=== PATIENT | female | born 1980 | race Two or more races ===

== ENCOUNTER → 2019-04-06 | Outpatient (CLI) | payer BC ==
--- NOTE | 2019-04-06 14:24 | RADIOLOGY REPORT (SQ) ---
EXAM DESCRIPTION: U/S ABDOMEN COMPLETE W/DOPPLER COMPLETED DATE/TIME: 04/06/2019 11:43 am REASON FOR STUDY: UNSPECIFIED ABDOMINAL PAIN R10.9 UNSPECIFIED ABDOMINAL PAIN COMPARISON: None. TECHNIQUE: Dynamic and static grayscale images acquired of the abdomen and recorded on PACS. Additio nal selected color Doppler and spectral images recorded. Note: Study does not meet criteria for complete doppler/duplex scan LIMITATIONS: None. FINDINGS: PANCREAS: No masses. Visualized pancreatic duct normal caliber. LIVER: No masses. Echotexture normal. LIVER VASCULATURE: Normal directional flow of the main portal vein and hepatic veins. GALLBLADDER: No stones. Normal wall thickness. No pericholecystic fluid. ULTRASOUND-DETECTED OWUSU'S SIGN: Negative. INTRAHEPATIC DUCTS AND COMMON DUCT: CBD and intrahepatic ducts normal caliber. No filling defects. INFERIOR VENA CAVA: Normal flow. AORTA: No aneurysm. RIGHT KIDNEY:Normal size. Normal echogenicity. No solid or suspicious masses. No hydronephrosis. No c alcifications. LEFT KIDNEY: Normal size. Normal echogenicity. No solid or suspicious masses. No hydronephrosis. No calcifications. SPLEEN: Normal size. No solid masses. PERITONEAL AND PLEURAL SPACES: No ascites or effusions. OTHER: No other significant finding. IMPRESSION: NORMAL ABDOMINAL ULTRASOUND. TECHNICAL DOCUMENTATION: JOB ID: [id number] [employer]- All Rights Reserved Reading location - IP/workstation name: [email or web address]
== END ==
LOC: RAD 11:01
PROVIDERS: ATTEND Physician Assistant
DX: R10.9 Unspecified abdominal pain (principal)
CPT/HCPCS: 76700; 93976

== ENCOUNTER 2019-07-25 20:15 | Emergency (ER) | payer BC ==
--- NOTE | 2019-07-25 20:33 | ER Document Report ---
ED GI/ - General Chief Complaint: Abdominal Pain Stated Complaint: ABDOMINAL PAIN Time Seen by Provider: 07/25/19 20:33 Primary Care Provider: FERMIN FLORES PA [NO LOCAL MD] - Follow up as needed Mode of Arrival: Ambulatory Information source: Patient, Relative Notes: HISTORY OF PRESENT ILLNESS: Patient is a 38-year-old female at 6-8 weeks with a past medical history of 1 prior stillbirth and one living child who presents with lower pelvic a bdominal pain that has been ongoing for the past several days but worsened today. Patient reports that her real estate officer told her 2 weeks ago that the fetus "had no heartbeat" and that a follow-up process on last week was unchanged. She currently reports she is attempting to get a secondary opinion after being told that she only had 3 options, all involving completing the miscarriage. Location: Pelvic Onset: Gradual several days ago Provocation: None Quality: Cramping, aching Radiation: None Severity: Moderate Timing: Persistent LMP: Reports being approximately 6 to 8 weeks Associated symptoms: Denies vaginal bleeding or discharge REVIEW OF SYSTEMS: CONSTITUTIONAL : Denies fever or chills, no sweats. Denies recent illness. EENT: Denies eye, ear, throat, or mouth pain or symptoms. Denies nasal or sinus congestion. CARDIOVASCULAR: Denies chest pain. RESPIRATORY: Denies cough, cold, or chest congestion. Denies shortness of breath, difficulty breathing, or wheezing. GASTROINTESTINAL: Denies abdominal pain. Denies nausea, vomiting, or diarrhea. Denies constipation. GENITOURINARY: Positive for pelvic pain and cramping. Denies difficulty urinating, painful urination, burning, frequency, or blood in urine. Denies vaginal bleeding, abnormal or irregular periods. MUSCULOSKELETAL: Denies neck or back pain or joint pain or swelling. SKIN: Denies rash or skin lesions. HEMATOLOGIC : Denies easy bruising or bleeding. LYMPHATIC: Denies swollen, enlarged glands. NEUROLOGICAL: Denies altered mental status or loss of consciousness. Denies headache. Denies weakness or paralysis or loss of use of either side. Denies problems with gait or speech. Denies sensory or motor loss. PSYCHIATRIC: Denies anxiety or stress or depression. All other systems reviewed and negative. PHYSICAL EXAMINATION: GENERAL: Well-appearing, well-nourished and in no acute distress. HEAD: Atraumatic, normocephalic. No scalp deformity, depression, or crepitance. EYES: Pupils are 3 mm and equal/round/reactive to light, extraocular movements intact, sclera anicteric, conjunctiva are normal. ENT: Nares patent bilaterally, oropharynx clear without exudates or palatal petechia. Moist mucous membranes. No tonsil hypertrophy. NECK: Normal range of motion, supple without lymphadenopathy. LUNGS: Breath sounds present, equal, and clear to auscultation bilaterally. No wheezes, rales, or rhonchi. HEART: Regular rate and rhythm without murmurs, rubs, or gallops. 2+ peripheral pulses. Normal capillary refill. ABDOMEN: Soft, mild suprapubic and pelvic tenderness, nondistended. Normoactive bowel sounds. No guarding, no rebound. No masses appreciated. BACK: Normal contour, no midline tenderness. Rectal exam deferred. PELVC: Deferred in lieu of of pelvic ultrasound. EXTREMITIES: Normal range of motion, no pitting or edema. No cyanosis. NEUROLOGICAL: No focal neurological deficits. Moves all extremities spontaneously and on command. PSYCH: Normal mood, normal affect. No suicidal thoughts/ideations. No homicidal thoughts/ideations. No hallucinations. SKIN: Warm, dry, normal turgor, no rashes or lesions noted. ASSESSMENT AND PLAN: This patient is a 38-year-old female at 6-8 weeks who presents with pelvic pain in the setting of a possible miscarriage. 1. Will obtain labs, quantitative beta-hCG, and pelvic ultrasound. 2. Will reassess after work-up is complete. TRAVEL OUTSIDE OF THE [place] IN LAST 30 DAYS: No - HPI Patient complains to provider of: Abdominal pain, Pelvic pain, . No: Vaginal bleeding, Vaginal discharge, Vaginal pain Onset: This morning Timing/Duration: Gradual, Persistent Quality of pain: Achy, Cramping Severity at maximum: Moderate Severity in ED: Mild Pain Level: 2 Context: . denies: Recent trauma Location: Suprapubic, Pelvis Vaginal bleeding (Compared to normal period): None Menstrual period history: LMP: "April" : 3 Para: 1 Abortions: 1 OB ultrasound done: No vitamins taken: Yes Sexual history: Active Associated symptoms: None Exacerbated by: Denies Relieved by: Denies Similar symptoms previously: Yes Recently seen / treated by doctor: Yes - Related Data Allergies/Adverse Reactions: No Known Allergies Allergy (Unverified 07/25/19 20:18) Past Medical History - General Information source: Patient, Relative - Social History Smoking Status: Never Smoker Chew tobacco use (# tins/day): No Frequency of alcohol use: None Drug Abuse: None Lives with: Family Family History: Reviewed & Not Pertinent Patient has suicidal ideation: No Patient has homicidal ideation: No - Past Medical History Cardiac Medical History: Reports: None Pulmonary Medical History: Reports: None EENT Medical History: Reports: None Neurological Medical History: Reports: None Endocrine Medical History: Reports: None Renal/ Medical History: Reports: None Malignancy Medical History: Reports: None GI Medical History: Reports: None Musculoskeletal Medical History: Reports None Skin Medical History: Reports None Psychiatric Medical History: Reports: None Traumatic Medical History: Reports: None Infectious Medical History: Reports: None Surgical Hx: Negative Past Surgical History: Reports: None - Immunizations Immunizations up to date: Yes Hx Diphtheria, Pertussis, Tetanus Vaccination: Yes Review of Systems - Review of Systems Constitutional: No symptoms reported EENT: No symptoms reported Cardiovascular: No symptoms reported Respiratory: No symptoms reported Gastrointestinal: No symptoms reported Genitourinary: No symptoms reported Female Genitourinary: See HPI, Musculoskeletal: No symptoms reported Skin: No symptoms reported Hematologic/Lymphatic: No symptoms reported Neurological/Psychological: No symptoms reported -: Yes All other systems reviewed and negative Physical Exam - Vital signs Vitals: Temp Pulse Resp BP Pulse Ox 97.8 F 79 16 122/74 98 07/25/19 20:20 07/25/19 20:20 07/25/19 20:20 07/25/19 20:20 07/25/19 20:20 Interpretation: Normal - General General appearance: Appears well, Alert - HEENT Head: Normocephalic, Atraumatic Eyes: Normal Pupils: PERRL - Respiratory Respiratory status: No respiratory distress Chest status: Nontender Breath sounds: Normal Chest palpation: Normal - Cardiovascular Rhythm: Regular Heart sounds: Normal auscultation Murmur: No - Abdominal Inspection: Normal Distension: No distension Bowel sounds: Normal Tenderness: Nontender Organomegaly: No organomegaly - Back Back: Normal, Nontender - Extremities General upper extremity: Normal inspection, Nontender, Normal color, Normal ROM, Normal temperature General lower extremity: Normal inspection, Nontender, Normal color, Normal ROM, Normal temperature, Normal weight bearing. No: Naldo's sign - Neurological Neuro grossly intact: Yes Cognition: Normal Orientation: AAOx4 Sonal Coma Scale Eye Opening: Spontaneous Sonal Coma Scale Verbal: Oriented Sonal Coma Scale Motor: Obeys Commands [place] Coma Scale Total: 15 Speech: Normal Motor strength normal: LUE, RUE, LLE, RLE Sensory: Normal - Psychological Associated symptoms: Normal affect, Normal mood - Skin Skin Temperature: Warm Skin Moisture: Dry Skin Color: Normal Course - Re-evaluation Re-evalutation: 07/26/19 00:55 Ultrasound shows no evidence of a viable intrauterine , most likely consistent with intrauterine demise. Patient already has planned follow-up with OB this week. Will discharge the patient home with strict return precautions and follow-up with [facility]. All results were explained to and discussed with the patient, and all questions addressed and answered for the patient. The patient and her family voice both understanding and agreeing with the plan. - Vital Signs Vital signs: Temp Pulse Resp BP Pulse Ox 98.2 F 70 16 109/57 L 98 07/26/19 00:47 07/26/19 00:47 07/26/19 00:47 07/26/19 00:47 07/26/19 00:47 - Laboratory Result Diagrams: 07/25/19 20:43 07/25/19 20:43 Laboratory results interpreted by me: 07/25/19 07/25/19 07/25/19 20:43 20:43 20:43 Hgb 11.0 L Hct 34.1 L MCV 66 L MCH 21.2 L RDW 17.5 H Sodium 136.5 L Glucose 128 H Beta HCG, Quant 05867.00 H Ur Leukocyte Esterase TRACE H - Diagnostic Test Radiology reviewed: Image reviewed, Reports reviewed Discharge - Discharge Clinical Impression: Prior with demise and current in first trimester Condition: Good Disposition: HOME, SELF-CARE Instructions: Abdominal Pain ([facility]), Miscarriage ([facility]) Additional Instructions: You have been evaluated in the Emergency Department for abdominal pain. While here, you had an ultrasound that is consistent with a likely miscarriage and it is now safe to be discharged home. Please follow-up with your [facility] as instructed as soon as possible. Return to the Emergency Department if you experience worsening pain, vaginal bleeding, or any other concerning symptoms. Prescriptions: Tramadol HCl [Ultram 50 mg Tablet] 50 mg PO Q6HP PRN #28 tablet PRN Reason: Forms: Parent Work Note Referrals: FERMIN FLORES PA [NO LOCAL MD] - Follow up as needed Print Language: Kyrgyz
--- NOTE | 2019-07-25 20:33 | ER Document Report ---
ED Medical Screen (RME) - General Chief Complaint: Abdominal Pain Stated Complaint: ABDOMINAL PAIN Time Seen by Provider: 07/25/19 20:20 Primary Care Provider: FERMIN FLORES PA [Primary Care Provider] - Follow up as needed Notes: Patient is a 38-year-old female who presents to emergency department with a chief complaint of lower abdominal pain that started 2 hours ago. Patient states last week she was seen at [facility] and was told that her baby did not have a heartbeat. She states she was about 6 weeks . Patient reports that she was given 3 options to include miscarrying at home, using Cytotec, or a D&C. Patient states she went home to make a decision as she wanted to get another opinion from a PAINT PROCESS ENGINEER in [place]. Patient states that she did decide she would want to have a D&C and was going to call her OB tomorrow. Patient states she reports chills. Patient denies nausea vomiting or diarrhea. Patient reports earlier she did notice some vaginal bleeding when she wiped after using the restroom and it was dark in color. Patient denies blood clots or large amounts of vaginal bleeding. Patient reports she feels like she may have a fever. TRAVEL OUTSIDE OF THE [place] IN LAST 30 DAYS: No - Related Data Allergies/Adverse Reactions: No Known Allergies Allergy (Unverified 07/25/19 20:18) Physical Exam - Vital signs Vitals: Temp Pulse Resp BP Pulse Ox 97.8 F 79 16 122/74 98 07/25/19 20:20 07/25/19 20:20 07/25/19 20:20 07/25/19 20:20 07/25/19 20:20 - Abdominal Inspection: Normal Distension: No distension Bowel sounds: Normal Organomegaly: No organomegaly Course - Re-evaluation Re-evalutation: 07/25/19 20:33 I have greeted and performed a rapid initial assessment of this patient. A comprehensive ED assessment and evaluation of the patient, analysis of test results and completion of the medical decision making process will be conducted by additional ED providers. - Vital Signs Vital signs: Temp Pulse Resp BP Pulse Ox 97.8 F 79 16 122/74 98 07/25/19 20:20 07/25/19 20:20 07/25/19 20:20 07/25/19 20:20 07/25/19 20:20 Doctor's Discharge - Discharge Referrals: FERMIN FLORES PA [Primary Care Provider] - Follow up as needed
[2019-07-25 21:03] LABS: APPEARANCE,URINE CLEAR; BILIRUBIN,URINE NEGATIVE (NEGATIVE); COLOR,URINE YELLOW; GLUCOSE, URINE NEGATIVE (NEGATIVE); KETONES,URINE NEGATIVE (NEGATIVE); LEUKOCYTE ESTERASE,URINE TRACE (NEGATIVE); NITRITE,URINE NEGATIVE (NEGATIVE); PROTEIN,URINE NEGATIVE (NEGATIVE); URINE SPECIFIC GRAVITY 1.013; UROBILINOGEN,URINE NEGATIVE mg/dL (<2.0)
[2019-07-25 21:04] LABS: ABSOLUTE EOSINOPHILS # (AUTO) 0.1 10^3/uL (0.0-0.6); ABSOLUTE LYMPHOCYTES (AUTO) 1.3 10^3/uL (0.5-4.7); ABSOLUTE MONOCYTES (AUTO) 0.8 10^3/uL (0.1-1.4); ABSOLUTE NEUT (AUTO) 4.6 10^3/uL (1.7-8.2); BASOPHILS % (AUTO) 0.2 % (0-2); EOSINOPHILS % (AUTO) 1.4 % (0-6); HEMATOCRIT 34.1 % (36.0-47.0); LYMPHOCYTES % (AUTO) 19.5 % (13-45); MEAN CORPUSCULAR HEMOGLOBIN 21.2 pg (27.0-33.4); MEAN CORPUSCULAR HGB CONC 32.4 g/dL (32.0-36.0); MEAN CORPUSCULAR VOLUME 66 fl (80-97); MONOCYTES % (AUTO) 11.7 % (3-13); PLATELET COUNT 194 10^3/uL (150-450); RED CELL DISTRIBUTION WIDTH 17.5 % (11.5-14.0); SEGMENTED NEUTROPHILS % (AUTO) 67.2 % (42-78); TOTAL CELLS COUNTED % (AUTO) 100 %; WHITE BLOOD COUNT 6.9 10^3/uL (4.0-10.5)
[2019-07-25 21:16] LABS: ALBUMIN 3.9 g/dL (3.5-5.0); ALKALINE PHOSPHATASE 46 U/L (38-126); ANION GAP 8 (5-19); ASPARTATE AMINO TRANSFERASE 20 U/L (14-36); BILIRUBIN,DIRECT 0.3 mg/dL (0.0-0.4); BILIRUBIN,TOTAL 0.3 mg/dL (0.2-1.3); BLOOD UREA NITROGEN 9 mg/dL (7-20); CALCIUM 9.3 mg/dL (8.4-10.2); CARBON DIOXIDE 26 mmol/L (22-30); CHLORIDE 103 mmol/L (98-107); GLUCOSE 128 mg/dL (75-110); POTASSIUM 3.9 mmol/L (3.6-5.0)
--- NOTE | 2019-07-25 23:18 | RADIOLOGY REPORT (SQ) ---
Ultrasound OB transvaginal on 07/25/2019 at 10:36 PM Clinical indication: Lower abdominal pain, history of demise last week COMPARISON: None FINDINGS: Multiple sonographic images are obtained throughout the pelvis by transvaginal approach, both transverse and sagittal images are obtained. Uterus is retroverted/retroflexed. Uterus measures approximately 9.3 x 6.3 x 7.4 cm. Right ovary measures approximately 2.2 x 1.3 x 1.0 cm. Flow is demonstrated in the right ovary. Left ovary measures approximately 1.9 x 3.4 x 2.0 cm. There is a likely collapsing corpus luteal cyst in the left ovary incidentally noted only measuring approximately 1.3 x 0.5 x 1.0 cm and should be considered benign with no follow-up recommended. Flow is demonstrated in the left ovary. There is a large irregular gestational sac in the uterus with no yolk sac or pole consistent with demise. Recommend appropriate OB follow-up. There is heterogeneous appearance of the uterine myometrium suggesting multiple small fibroids. IMPRESSION: Large irregular gestational sac with no yolk sac or pole consistent with demise and retained products of conception. Recommend appropriate OB follow-up.
[2019-07-26 00:48] VITALS: BP 109/57
== END 2019-07-26 01:16 | disposition home or self-care (01) ==
LOC: ER 20:15
DX: O26.891 Other specified pregnancy related conditions, first trimester (principal); R10.9 Unspecified abdominal pain; R10.2 Pelvic and perineal pain; Z3A.01 Less than 8 weeks gestation of pregnancy
CPT/HCPCS: 36415; 76817; 80053; 81001; 84702; 85025; 86900; 86901; 93976

== ENCOUNTER 2019-07-27 09:24 | Day surgery (SDC) | payer BC ==
[2019-07-27] MEDS ORDERED: MIDAZOLAM 2 MG/2 ML INJ ONE (10:33)
[2019-07-27] MEDS ORDERED: PROPOFOL INJ 200 MG/20 ML VIAL IV ONE (10:33)
[2019-07-27] MEDS ORDERED: FENTANYL CITRATE INJ/PF 100 MCG/2 ML AMPUL ONE (10:33)
[2019-07-27] MEDS ORDERED: KETOROLAC TROMETHAMINE 60 MG/2 ML SDV ONE (12:15)
[2019-07-27] MEDS ORDERED: DEXAMETHASONE SOD PHOSPHATE INJ 4 MG/1 ML VIAL ONE (12:16)
[2019-07-27] MEDS ORDERED: ONDANSETRON HCL INJ/PF 4 MG/2 ML SDV ONE (12:16)
[2019-07-27] MEDS ORDERED: FENTANYL CITRATE INJ/PF 100 MCG/2 ML AMPUL IV PRN ×3 (12:56)
[2019-07-27] MEDS ORDERED: MORPHINE SULFATE 10 MG/ML INJ IV PRN (12:56)
[2019-07-27] MEDS ORDERED: MEPERIDINE HCL/PF INJ 25 MG/1 ML DISP.SYRIN IV PRN (12:56)
[2019-07-27] MEDS ORDERED: DIPHENHYDRAMINE HCL 50 MG/ML VIAL IV PRN (12:56)
[2019-07-27] MEDS ORDERED: OXYCODONE-ACETAMINOPHEN 5-325 MG TABLET PO PRN ×4 (12:56→13:03)
[2019-07-27] MEDS ORDERED: RINGERS SOLUTION,LACTATED 1,000 ML IV PRN (13:03)
[2019-07-27] MEDS ORDERED: IBUPROFEN 800 MG TABLET PO PRN (13:03)
[2019-07-27] MEDS ORDERED: KETOROLAC TROMETHAMINE INJ/PF 30 MG/1 ML SDV IV PRN (13:03)
--- NOTE | 2019-07-27 13:08 | Operative Report ---
Operative Report DATE OF SURGERY: 07/27/19 PREOPERATIVE DIAGNOSIS: Missed POSTOPERATIVE DIAGNOSIS: Same OPERATION: Suction D&C SURGEON: CHAD DOMINGO ANESTHESIA: LMAC TISSUE REMOVED OR ALTERED: Uterine contents COMPLICATIONS: None ESTIMATED BLOOD LOSS: 50 cc INTRAOPERATIVE FINDINGS: Uterus sounded to 8 cm before and after the case PROCEDURE: Patient was taken to the OR and placed in supine position. Anesthesia was induced. She is placed in the dorsolithotomy position using Mauricio stirrups. Her perineum and vagina were prepared and draped in sterile fashion. Her bladder was drained with a red rubber catheter. A weighted speculum was placed in the anterior lip the cervix was grasped with a tenaculum. Uterine sound was retroverted and 8 cm. The cervix was dilated. This allowed a size 8 curette to be placed. The uterine contents were evacuated. There was return of tissue and fluid. A gentle sharp curettage revealed no retained products at the end of the case. Repeat sound was 8 cm. All instruments were removed. There was some bleeding from the tenaculum site and a [id number] suture of 3-0 chromic was placed to stop the bleeding from the tenaculum site. Patient was placed back in supine position taken to recovery room in stable condition.
--- NOTE | 2019-07-27 13:10 | Discharge Summary ---
Discharge Summary (SDC) - Discharge Final Diagnosis: Missed Date of Surgery: 07/27/19 Discharge Date: 07/27/19 Condition: Good Referrals: LUPIS HAGEN MD [Primary Care Provider] - Discharge Diet: Regular Discharge Activity: Activity As Tolerated, Pelvic Rest Report the Following to Your Physician Immediately: Shortness of Breath, Fever over 101 Degrees, Unusual Bleeding
[2019-07-27 14:56] VITALS: BP 103/48
== END 2019-07-27 14:55 | disposition home or self-care (01) ==
LOC: OROUT 09:24
PROVIDERS: ATTEND Obstetrics & Gynecology
DX: O02.1 Missed abortion (principal)
CPT/HCPCS: 88305 ×2; 01965; 59820; J2250; J1100; J1885; J3010; J2405; J2704; 1965

== ENCOUNTER 2019-07-31 15:07 | Emergency (ER) | payer BC ==
--- NOTE | 2019-07-31 16:22 | ER Document Report ---
ED Medical Screen (RME) - General Chief Complaint: Vaginal Pain Stated Complaint: ABDOMINAL PAIN Time Seen by Provider: 07/31/19 16:17 Primary Care Provider: LUPIS HAGEN MD [Primary Care Provider] - Follow up as needed Mode of Arrival: Ambulatory Information source: Patient Notes: 38-year-old female the ED for complaint of pelvic pain x3 hours she states she has some slight pain and burning with urination. She did have a D&C last Thursday. She is alert oriented respirations regular and unlabored speaking in full sentences walks with even steady gait. I have greeted and performed a rapid initial assessment of this patient. A comprehensive ED assessment and evaluation of the patient, analysis of test results and completion of medical decision making process will be conducted by an additional ED providers. TRAVEL OUTSIDE OF THE [place] IN LAST 30 DAYS: No - Related Data Allergies/Adverse Reactions: No Known Allergies Allergy (Verified 07/31/19 15:12) Past Medical History - Social History Chew tobacco use (# tins/day): No Frequency of alcohol use: None Drug Abuse: None - Past Medical History Cardiac Medical History: Denies: Hx Coronary Artery Disease, Hx Heart Attack, Hx Hypertension Pulmonary Medical History: Denies: Hx Asthma, Hx Bronchitis, Hx COPD, Hx Pneumonia Neurological Medical History: Denies: Hx Cerebrovascular Accident, Hx Seizures Musculoskeltal Medical History: Denies Hx Arthritis - Immunizations Immunizations up to date: Yes Hx Diphtheria, Pertussis, Tetanus Vaccination: No Physical Exam - Vital signs Vitals: Temp Pulse Resp BP Pulse Ox 97.9 F 80 18 108/58 L 96 07/31/19 15:15 07/31/19 15:15 07/31/19 15:15 07/31/19 15:15 07/31/19 15:15 Course - Vital Signs Vital signs: Temp Pulse Resp BP Pulse Ox 97.9 F 80 18 108/58 L 96 07/31/19 15:15 07/31/19 15:15 07/31/19 15:15 07/31/19 15:15 07/31/19 15:15 Doctor's Discharge - Discharge Referrals: LUPIS HAGEN MD [Primary Care Provider] - Follow up as needed
[2019-07-31 16:37] LABS: ABSOLUTE EOSINOPHILS # (AUTO) 0.2 10^3/uL (0.0-0.6); ABSOLUTE LYMPHOCYTES (AUTO) 1.1 10^3/uL (0.5-4.7); ABSOLUTE MONOCYTES (AUTO) 0.8 10^3/uL (0.1-1.4); BASOPHILS % (AUTO) 0.7 % (0-2); EOSINOPHILS % (AUTO) 2.3 % (0-6); HEMATOCRIT 37.5 % (36.0-47.0); HEMOGLOBIN 12.1 g/dL (12.0-15.5); LYMPHOCYTES % (AUTO) 15.4 % (13-45); MEAN CORPUSCULAR HEMOGLOBIN 21.2 pg (27.0-33.4); MEAN CORPUSCULAR HGB CONC 32.2 g/dL (32.0-36.0); MEAN CORPUSCULAR VOLUME 66 fl (80-97); MONOCYTES % (AUTO) 11.5 % (3-13); PLATELET COUNT 219 10^3/uL (150-450); RED CELL DISTRIBUTION WIDTH 17.4 % (11.5-14.0); SEGMENTED NEUTROPHILS % (AUTO) 70.1 % (42-78); TOTAL CELLS COUNTED % (AUTO) 100 %; WHITE BLOOD COUNT 7.1 10^3/uL (4.0-10.5)
[2019-07-31 16:45] LABS: APPEARANCE,URINE CLEAR; BILIRUBIN,URINE NEGATIVE (NEGATIVE); COLOR,URINE YELLOW; GLUCOSE, URINE NEGATIVE (NEGATIVE); KETONES,URINE NEGATIVE (NEGATIVE); LEUKOCYTE ESTERASE,URINE TRACE (NEGATIVE); NITRITE,URINE NEGATIVE (NEGATIVE); PROTEIN,URINE NEGATIVE (NEGATIVE); URINE SPECIFIC GRAVITY 1.011; UROBILINOGEN,URINE NEGATIVE mg/dL (<2.0)
--- NOTE | 2019-07-31 19:18 | ER Document Report ---
HPI - HPI Patient complains to provider of: vaginal bleeding, pelvic pain Time Seen by Provider: 07/31/19 16:17 Pain Level: 3 Context: 38 Yr old female patient, with the listed pmh, here for abdominal pain x days. No abdominal surgeries. No history of ovarian cysts, fibroids, endometriosis, or renal stones. Normal bowel movements. No UTI symptoms. No URI symptoms. No recent antibiotics or steroids. No history of diabetes or asthma. No vaginal discharge/complaints/lesions or concerns for STDs and does not want a pelvic exam. No ripping or tearing sensation. Hasn't taken anything for her symptoms. No excessive NSAID use, Tylenol use, or EtOH. No prior history of gallbladder disease, pancreatitis, ulcers, GI bleed, GERD, IBS, Crohn's, or UC. no change in color or caliber or stool. no blood thinners. no fall or trauma. no other associated sx. - ROS Systems Reviewed and Negative: Yes All other systems reviewed and negative - To include 10 systems, unless mentioned in the hpi. - REPRODUCTIVE Reproductive: DENIES: : Past Medical History - General Information source: Patient - Social History Smoking Status: Never Smoker Chew tobacco use (# tins/day): No Frequency of alcohol use: None Drug Abuse: None Family History: Reviewed & Not Pertinent Patient has suicidal ideation: No Patient has homicidal ideation: No - Past Medical History Cardiac Medical History: Denies: Hx Coronary Artery Disease, Hx Heart Attack, Hx Hypertension Pulmonary Medical History: Denies: Hx Asthma, Hx Bronchitis, Hx COPD, Hx Pneumonia Neurological Medical History: Denies: Hx Cerebrovascular Accident, Hx Seizures Musculoskeletal Medical History: Denies Hx Arthritis - Immunizations Immunizations up to date: Yes Hx Diphtheria, Pertussis, Tetanus Vaccination: No Vertical Provider Document - CONSTITUTIONAL Agree With Documented VS: Yes Exam Limitations: No Limitations General Appearance: No Apparent Distress Notes: >>>> PHYSICAL_EXAM: GENERAL_APPEARANCE: well_nourished, alert, cooperative, no_acute_distress, no_obvious_discomfort. Pleasant, female, smiling, speaking in full sentences, in no sign of pain or resp distress, easily sitting up VITALS: reviewed, see vital signs table. HEAD: normocephalic, atraumatic. no ramos signs. no raccoon eyes. EYES: PERRL, EOMI, (-)scleral icterus. NOSE: no_nasal_discharge. MOUTH: (-)decreased moisture. THROAT: no_tonsilar_inflammation/hypertrophy/exudate NECK: supple, no_neck_tenderness, full rom. full strength. no meningeal signs. no sign of central cord syndrome BACK: no midline_back_tenderness. no step offs or deformities CHEST_WALL: no_chest_tenderness. LUNGS: no_wheezing, (-)accessory muscle use, good air exchange bilateral. HEART: normal_rate, normal_rhythm, ABDOMEN: normal_BS, soft, abdomen-diffuse, non-tender, (-)guarding, (- )rebound, no distension or peritoneal signs. neg murphys. neg mcburneys. no cva tenderness. neg heel strike. neg obturator. neg psoas. neg rovsign. GENITALS: no_ulcers_or_lesions on the genitals, no_lacerations on the genitals, PELVIC: (-)tender uterus, left_and_right adnexa non-tender, (-)CMT, (-)active bleeding, (-)discharge, no_tenderness no cervcicitis, normal os, pt consented to exam. exam without incident. 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 RECTAL: deferred EXTREMITIES: strength 5/5 in all_extremities, good pulses in all_extremities, no_edema, no_swelling\tenderness. full rom. normal gait. good hand admissions assistant. brisk cap refill. SKIN: warm, dry, good_color, no_rash. no grossly visible overlying skin changes to suggest trauma NEURO: motor_intact, sensory_intact. cranial nerves 2-12 intact, cerebellar fxn intact MENTAL_STATUS: normal_affect, speech_clear, oriented_X_3, responds_appropriately to questions. - INFECTION CONTROL TRAVEL OUTSIDE OF THE [place] IN LAST 30 DAYS: No Course - Re-evaluation Re-evalutation: 07/31/19 20:23 Pt here for . advised to f/u with pcp in 1-2 days. return for any worsening s ymptoms. vss. well appearing. satting well on ra. neurononfocal. pt understands and agrees to plan. On reexam, pt improved with tx listed. remained stable. nontoxic. well appearing. pain controlled. tolerating po. requesting to go home. case discussed with ER Attending, Dr. Bellamy, who directed and agrees with plan of care and advised no further workup indicated at this time and pt is stable fo r dc home with close f/u with pcp/specialist. Documentation achieved through voice recording which may lead to some occasional accidental typographical errors. Extensive efforts have been made to proof read documentation to make sure these are the least as possible. Category Date Time Status CBC WITH DIFF [HEME] Stat Lab 07/31/19 16:00 Completed COMPREHENSIVE METABOLIC PANEL [CHEM] Stat Lab 07/31/19 16:00 Completed HCG QUANTITATIVE [CHEM] Stat Lab 07/31/19 16:00 Completed HCG-QUAL, SERUM [CHEM] Stat Lab 07/31/19 16:00 Completed URINALYSIS [URIN] Stat Lab 07/31/19 16:00 Completed URINE CULTURE [MC] Stat Lab 07/31/19 16:00 Received - Vital Signs Vital signs: Temp Pulse Resp BP Pulse Ox 97.9 F 80 18 108/58 L 96 07/31/19 15:15 07/31/19 15:15 07/31/19 15:15 07/31/19 15:15 07/31/19 15:15 07/31/19 20:25 Temp Pulse Resp BP Pulse Ox 07/31/19 15:15 97.9 F 80 18 108/58 L 96 - Laboratory Result Diagrams: 07/31/19 16:00 07/31/19 16:00 Laboratory results interpreted by me: 07/31/19 07/31/19 07/31/19 16:00 16:00 16:00 RBC 5.70 H MCV 66 L MCH 21.2 L RDW 17.4 H Serum HCG, Qual POSITIVE H Urine Blood LARGE H Ur Leukocyte Esterase TRACE H 07/31/19 20:24 Labs- Entire Visit 07/31/19 07/31/19 07/31/19 16:00 16:00 16:00 WBC 7.1 RBC 5.70 H Hgb 12.1 Hct 37.5 MCV 66 L MCH 21.2 L MCHC 32.2 RDW 17.4 H Plt Count 219 Lymph % (Auto) 15.4 [place] % (Auto) 11.5 Eos % (Auto) 2.3 Baso % (Auto) 0.7 Absolute Neuts (auto) 5.0 Absolute Lymphs (auto) 1.1 Absolute Monos (auto) 0.8 Absolute Eos (auto) 0.2 Absolute Basos (auto) 0.0 Seg Neutrophils % 70.1 Sodium Potassium Chloride Carbon Dioxide Anion Gap BUN Creatinine Est GFR ( Amer) Est GFR (MDRD) Non-Af Glucose Calcium Total Bilirubin Direct Bilirubin Neonat Total Bilirubin Neonat Direct Bilirubin Neonat Indirect Bili AST ALT Alkaline Phosphatase Total Protein Albumin Serum HCG, Qual POSITIVE H Beta HCG, Quant Total Beta HCG Urine Color YELLOW Urine Appearance CLEAR Urine pH 6.0 Ur Specific [place] 1.011 Urine Protein NEGATIVE Urine Glucose (UA) NEGATIVE Urine Ketones NEGATIVE Urine Blood LARGE H Urine Nitrite NEGATIVE Urine Bilirubin NEGATIVE Urine Urobilinogen NEGATIVE Ur Leukocyte Esterase TRACE H Urine WBC (Auto) 5 Urine RBC (Auto) 4 Squamous Epi Cells Auto 1 Urine Mucus (Auto) RARE Urine Ascorbic Acid NEGATIVE 07/31/19 07/31/19 16:00 16:00 WBC RBC Hgb Hct MCV MCH MCHC RDW Plt Count Lymph % (Auto) [place] % (Auto) Eos % (Auto) Baso % (Auto) Absolute Neuts (auto) Absolute Lymphs (auto) Absolute Monos (auto) Absolute Eos (auto) Absolute Basos (auto) Seg Neutrophils % Sodium 135.8 L Potassium 4.7 Chloride 100 Carbon Dioxide 30 Anion Gap 6 BUN 14 Creatinine 0.74 Est GFR ( Amer) > 60 Est GFR (MDRD) Non-Af > 60 Glucose 122 H Calcium 9.2 Total Bilirubin 0.2 Direct Bilirubin 0.1 Neonat Total Bilirubin Not Reportable Neonat Direct Bilirubin Not Reportable Neonat Indirect Bili Not Reportable AST 30 ALT 22 Alkaline Phosphatase 52 Total Protein 7.6 Albumin 4.1 Serum HCG, Qual Beta HCG, Quant 679.19 H Total Beta HCG POSITIVE Urine Color Urine Appearance Urine pH Ur Specific [place] Urine Protein Urine Glucose (UA) Urine Ketones Urine Blood Urine Nitrite Urine Bilirubin Urine Urobilinogen Ur Leukocyte Esterase Urine WBC (Auto) Urine RBC (Auto) Squamous Epi Cells Auto Urine Mucus (Auto) Urine Ascorbic Acid Discharge - Discharge Clinical Impression: Pelvic pain, Vaginal bleeding, Post-op pain Post-op bleeding Qualifiers: Surgical complication system/body Area: genitourinary Procedure type: genitourinary Qualified Code(s): N99.820 - Postprocedural hemorrhage of a genitourinary system organ or structure following a genitourinary system procedure Condition: Good Disposition: HOME, SELF-CARE Instructions: Post Dilation and Curettage ([facility]) Additional Instructions: Follow-up with OBGYN in 1 to 2 days. Return for any worsening symptoms. tylenol or motrin as needed for any pain. take the medication as prescribed. Call for an appointment tomorrow. Pelvic rest. No heavy lifting. Continue postop instructions per your surgeon. Referrals: CHAD DOMINGO MD [ACTIVE STAFF] - Follow up tomorrow LUPIS HAGEN MD [Primary Care Provider] - Follow up tomorrow
[2019-07-31 19:38] LABS: ALBUMIN 4.1 g/dL (3.5-5.0); ALKALINE PHOSPHATASE 52 U/L (38-126); ANION GAP 6 (5-19); ASPARTATE AMINO TRANSFERASE 30 U/L (14-36); BILIRUBIN,DIRECT 0.1 mg/dL (0.0-0.4); BILIRUBIN,TOTAL 0.2 mg/dL (0.2-1.3); BLOOD UREA NITROGEN 14 mg/dL (7-20); CALCIUM 9.2 mg/dL (8.4-10.2); CARBON DIOXIDE 30 mmol/L (22-30); CHLORIDE 100 mmol/L (98-107); GLUCOSE 122 mg/dL (75-110); POTASSIUM 4.7 mmol/L (3.6-5.0); TOTAL PROTEIN 7.6 g/dL (6.3-8.2)
[2019-07-31 20:39] VITALS: BP 112/58
== END 2019-07-31 20:40 | disposition home or self-care (01) ==
LOC: ER 15:07
DX: N99.820 Postprocedural hemorrhage of a genitourinary system organ or structure following a genitourinary system procedure (principal); G89.18 Other acute postprocedural pain; N93.9 Abnormal uterine and vaginal bleeding, unspecified; R10.2 Pelvic and perineal pain; Z98.890 Other specified postprocedural states
CPT/HCPCS: 36415; 80053; 81001; 84702; 84703; 85025; 87086; 99284

== ENCOUNTER → 2019-09-08 | Outpatient (CLI) | payer BC, MEDICAID ==
--- NOTE | 2019-09-08 08:31 | WOMENS IMAGING REPORT ---
EXAM DESCRIPTION: TRANSVAGINAL ULTRASOUND COMPLETED DATE/TIME: 09/08/2019 7:58 am REASON FOR STUDY: RLQ ABDOMINAL PAIN;R10.31 PELVIC PAIN;R10.2 R10.2 PELVIC AND PERINEAL PAIN R10.31 RIGHT LOWER QUADRANT PAIN COMPARISON: None. TECHNIQUE: Dynamic and static grayscale images acquired of the pelvis via transvaginal approach and recorded on PACS. Additional selected color Doppler and spectral images recorded. LIMITATIONS: None. FINDINGS: UTERUS: The uterus is retroverted. Contour normal. No mass. ENDOMETRIAL STRIPE: No focal or generalized thickening. No masses. CERVIX: No nabothian cysts. RIGHT OVARY AND DOPPLER: Normal size. No worrisome masses. Normal arterial vascular flow without evid ence for torsion. LEFT OVARY AND DOPPLER: Normal size. A complex 2.2 x 1.8 x 1.6 cm cyst. Normal arterial vascular paula w without evidence for torsion. FREE FLUID: Small amount of free fluid in the posterior cul-de-sac. OTHER: No other significant finding. MEASUREMENTS: UTERUS: 9.2 x 4.2 x 5.4 cm ENDOMETRIAL STRIPE: 9 mm RIGHT OVARY: 2.7 x 2.5 x 2.1 cm LEFT OVARY: 3.6 x 2.1 x 2.5 cm IMPRESSION: 1. A complex left ovarian cyst. A follow-up examination in 6 to 12 weeks suggested. 2. The uterus is retroverted. COMMENT: Followup of asymptomatic indeterminate ovarian cysts detected by ultrasound in PREMENOPAUS [place] patients Cyst with findings suggestive of, but not classic for, hemorrhagic cyst, endometrioma or dermoid: *6-12 week followup US; if not a resolving hemorrhagic cyst, continued US or MRI followup; if endomet rioma or dermoid still not confirmed, consider surgical consultation Single thin septation or focal wall calcification: *Same as for benign cyst, based on size Multiple septations: *Consider surgical consultation Nodule in a cyst: *No blood flow in nodule: MRI or surgical consultation *Blood flow in nodule: surgical consultation Note: If cyst is clinically symptomatic or otherwise concerning, other followup may be warranted. Based on recommendations of the Society for Radiologists in Ultrasound Consensus Conference Statement 2010 on management of asymptomatic ovarian and other adnexal cysts imaged at ultrasound. TECHNICAL DOCUMENTATION: JOB ID: [id number] [employer]- All Rights Reserved Rev Reading location - IP/workstation name: [email or web address]
== END ==
LOC: WI 07:35
PROVIDERS: ATTEND Physician Assistant
DX: R10.31 Right lower quadrant pain (principal); R10.2 Pelvic and perineal pain
CPT/HCPCS: 76830

== ENCOUNTER → 2019-11-03 | Outpatient (CLI) | payer BC, MEDICAID ==
--- NOTE | 2019-11-03 13:45 | RADIOLOGY REPORT (SQ) ---
EXAM DESCRIPTION: U/S NON-OB PELVIS TV W/O DOP COMPLETED DATE/TIME: 11/03/2019 12:13 pm REASON FOR STUDY: N83.202 UNSPECIFIED OVARIAN CYST, LEFT SIDE N83.202 UNSPECIFIED OVARIAN CYST, LEF T SIDE COMPARISON: 09/08/2019 TECHNIQUE: Dynamic and static grayscale images acquired of the pelvis via transvaginal approach and recorded on PACS. Additional selected color Doppler and spectral images recorded. LIMITATIONS: None. FINDINGS: UTERUS: Contour normal. No mass. ENDOMETRIAL STRIPE: No focal or generalized thickening. No masses. Small amount of free fluid is not ed in the endometrium. CERVIX: No nabothian cysts. RIGHT OVARY AND DOPPLER: Normal size. No worrisome masses. Normal arterial vascular flow without evid ence for torsion. There is a small right ovarian cyst this measures just over [address] diame ter. . LEFT OVARY AND DOPPLER: Normal size. No worrisome masses. Normal arterial vascular flow without evide nce for torsion. There is a degenerating cyst on the left measured 1.4 x 1.7 x 0.9 cm. This is impr balta from prior exam. FREE FLUID: There is a small amount of free fluid in the anterior cul de sac. OTHER: No other significant finding. MEASUREMENTS: UTERUS: 7.1 x 4.8 x 4.2 cm. ENDOMETRIAL STRIPE: 9.8 mm. RIGHT OVARY: 3.0 x 1.2 x 1.4 cm. LEFT OVARY: 2.4 x 2.6 x 1.6 cm. IMPRESSION: Degenerating left ovarian cyst measured 1.4 x 1.7 x 0.9 cm. Previously this measured 2. 2 x 1.8 x 1.6 cm. There is a small amount of free fluid in the anterior cul de sac. TECHNICAL DOCUMENTATION: JOB ID: [id number] [employer]- All Rights Reserved Rev-04/09 Reading location - IP/workstation name: [email or web address]
== END ==
LOC: RAD 11:27
PROVIDERS: ATTEND Physician Assistant
DX: N83.202 Unspecified ovarian cyst, left side (principal)
CPT/HCPCS: 76830

== ENCOUNTER → 2020-02-10 | Outpatient (CLI) | payer BC ==
--- NOTE | 2020-02-10 12:51 | RADIOLOGY REPORT (SQ) ---
EXAM DESCRIPTION: ACUTE ABDOMEN SERIES COMPLETED DATE/TIME: 02/10/2020 12:27 pm REASON FOR STUDY: LOWER ABDOMINAL PAIN R10.30 LOWER ABDOMINAL PAIN, UNSPECIFIED COMPARISON: 02/10/2020 NUMBER OF VIEWS: Three views. TECHNIQUE: Frontal chest, supine abdomen and upright abdomen radiographic images acquired. LIMITATIONS: None. FINDINGS: CHEST: Lungs clear of infiltrates. Cardiac silhouette size, berenice unremarkable. FREE AIR: None. No abnormal gas collections. BOWEL GAS PATTERN: Nonobstructive pattern. No dilated loops or air fluid levels. Moderate constipati on CALCIFICATIONS: No suspicious calcifications. HARDWARE: None in the abdomen. SOFT TISSUES: No gross mass or suggestion of organomegaly. BONES: No acute fracture. No worrisome bone lesions. OTHER: No other significant finding. IMPRESSION: NO RADIOGRAPHIC EVIDENCE FOR ACUTE ABDOMINAL DISEASE. MODERATE CONSTIPATION TECHNICAL DOCUMENTATION: JOB ID: [id number] 2010 [employer]- All Rights Reserved Reading location - IP/workstation name: [email or web address]
== END ==
LOC: OD 12:13
PROVIDERS: ATTEND Physician Assistant
DX: K59.00 Constipation, unspecified (principal)
CPT/HCPCS: 74022

== ENCOUNTER → 2020-09-14 | Outpatient (CLI) | payer BC, MEDICAID ==
--- NOTE | 2020-09-17 13:30 | WOMENS IMAGING REPORT ---
EXAM DESCRIPTION: BILAT SCREENING MAMMO W/CAD IMAGES COMPLETED DATE/TIME: 09/17/2020 1:09 pm REASON FOR STUDY: Z12.31 ENCNTR SCREEN MAMMOGRAM FOR MALIGNANT NEOPLASM OF BREAST Z12.31 ENCNTR SCR EEN MAMMOGRAM FOR MALIGNANT NEOPLASM OF EMILY COMPARISON: The patient's outside examinations are not available at this reading. EXAM PARAMETERS: Standard craniocaudal and mediolateral oblique views of each breast recorded using digital acquisition. Read with the assistance of CAD. .[facility] - [employer] Version 9.2 LIMITATIONS: None. FINDINGS: Findings present which are benign by mammographic criteria. No suspicious masses, calcifi cations or architectural distortion. Pertinent benign findings: Benign appearing calcifications in the breasts. Benign mammographic findings may include one or more of the following: Smooth masses, popcorn/rim/co arse calcifications, asymmetries, post-procedure changes, and lesions with long-standing stability. IMPRESSION: BENIGN MAMMOGRAPHIC FINDINGS. BIRADS 2 BREAST DENSITY: d. The breasts are extremely dense, which lowers the sensitivity of mammography. BIRAD: ASSESSMENT: 2 BENIGN FINDING(S) RECOMMENDATION: 1. ROUTINE SCREENING COMMENT: The patient has been notified of the results by letter per MQSA requirements. Additional no tification policies are in place for contacting patient with suspicious or incomplete findings. Quality ID #[id number]: The [employer] recommends an annual screening mammogram for women aged 40 years or over. This facility utilizes a reminder system to ensure that all patients receive reminder letters, and/or direct phone calls for appointments. This includes reminders for routine scr eening mammograms, diagnostic mammograms, or other Breast Imaging Interventions when appropriate. Th is patient will be placed in the appropriate reminder system. TECHNICAL DOCUMENTATION: FINDING NUMBER: (1) ASSESSMENT: (1) JOB ID: [id number] 2010 [employer]- All Rights Reserved Reading location - IP/workstation name: [email or web address]
== END ==
LOC: WI 10:58
PROVIDERS: ATTEND Physician Assistant
DX: Z12.31 Encounter for screening mammogram for malignant neoplasm of breast (principal)
CPT/HCPCS: 77067